=== PATIENT | female | born 1970 | race Caucasian/White ===

== ENCOUNTER 2024-03-22 17:33 | Emergency (ER) | payer OTHER, SELFPAY ==
--- NOTE | ~2024-03-22 | CT_ITS ---
EXAMINATION: CT abdomen pelvis w con DATE: 03/22/2024 20:46 INDICATION: Abdominal pain and diarrhea TECHNIQUE: Computed tomography (CT) of the abdomen and pelvis was performed with 100 mL Omnipaque-350 intravenous contrast. Automated exposure control and iterative reconstruction technique were employe d. The dose-length product was 618.04 mGy-cm. COMPARISON: None FINDINGS: Lung bases are clear. Heart size normal. No pericardial or pleural effusion. Small sliding-type hiata l hernia. Cholecystectomy clips at the gallbladder fossa. Liver, spleen, pancreas, bilateral adrenal glands and kidneys are normal. Fluid is seen scattered throughout the colon consistent with nonspecif ic diarrhea. Small bowel and appendix are normal. Left common iliac vein stent extending from the cau [place]annah inferior vena cava to the proximal most left external iliac vein. Decompressed bladder is unremar kable. The uterus is not identified and has likely been surgically resected. No free intraperitoneal gas or fluid. No pathologically enlarged abdominal or pelvic lymphadenopathy. Moderate lumbar and low er thoracic spondylosis. IMPRESSION: 1. Fluid throughout the colon consistent with nonspecific diarrhea. No other acute intra-abdominal/pe lvic process. 2. Small sliding-type hiatal hernia. 3. Left common iliac vein stent. Reviewed, dictated and finalized at location A. IMPRESSION: 1. Fluid throughout the colon consistent with nonspecific diarrhea. No other ac platinum intra-abdominal/pelvic process. 2. Small sliding-type hiatal hernia. 3. Left common iliac vein stent.
[2024-03-22 17:46] VITALS: BP 123/100; PULSE 105; RESP 14; TEMP 36.7; O2SAT 96
--- NOTE | 2024-03-22 18:39 | ED.ABDPAIN ---
HPI - Abdominal Pain General Chief Complaint: Abdominal Pain <Jamie Ocasio SAND CUTTING MACHINE OPERATOR - Last Filed: 03/22/24 18:43> Stated Complaint: abd pain, N/V <Jamie Ocasio APRN - Last Filed: 03/22/24 18:43> Time Seen by Provider: 03/22/24 18:54 <Jamie Ocasio SAND CUTTING MACHINE OPERATOR - Last Filed: 03/22/24 18:43> Focused HPI: 53-year-old female history of type 2 diabetes, hypertension, Sjogren's, gastroparesis, status post hysterectomy cholecystectomy presents to the emergency room for evaluation of nausea vomiting and diarrhea. Patient states she has been experiencing multiple episodes of nonmelanotic diarrhea. Patient states that she took 1 dose of anti diarrheal with no improvement. Patient states she began experiencing nausea with multiple episodes of nonbloody nonbilious vomiting this afternoon. Associated with upper abdominal discomfort. Denies fevers. GENERAL: Well-appearing, well-nourished, and in no acute distress. HEAD: Normocephalic, atraumatic. CHEST: Clear to auscultation. No respiratory distress. HEART: Regular rate and rhythm. NEURO: Alert and oriented x3. Patient screened in triage and initial orders placed. Additional care and disposition to be based upon diagnostic testing and treatment. <Jamie Ocasio, SAND CUTTING MACHINE OPERATOR - Last Filed: 03/22/24 18:43> History of Present Illness HPI narrative: Patient is a 53 year old female with history of DM, gastroparesis, Sjogren's, HLD, HTN here with diarrhea. Patient notes that 2 weeks ago on she underwent a carpal tunnel and ulnar release at [facility]. She notes she had significant postoperative itching and decided to pull her own stitches out. She contacted her surgeon a couple days later and went into the [facility] and then to the OR with her surgeon for wash out last Wednesday. She was discharged on a week of antibiotics, finishing this past Wednesday. She has no idea which antibiotics she was on and most of her care is through the [facility] or [facility]. She notes that she began having diarrhea about 4 days ago. She notes it is associated with diffuse abdominal cramping worse in the upper and right upper quadrant. She denies any change with eating. She did try to have some scrambled eggs this morning, almost immediately threw them up and has vomited about 7 times today. No blood in vomit or stool. No fever. No known sick contacts, no new food exposures. <Amberly Gunter MD - Last Filed: 03/23/24 12:29> Related Data Allergies/Adverse Reactions: Allergies Allergy/AdvReac Type Severity Reaction Status Date / Time metformin Allergy Other Verified 03/22/24 19:17 <Jamie Ocasio APRN - Last Filed: 03/22/24 18:43> Review of Systems Review of Systems: All systems reviewed & are unremarkable except as noted in HPI and below <Amberly Gunter MD - Last Filed: 03/23/24 12:29> Exam Narrative: GENERAL: Well-appearing, well-nourished, and in no acute distress. HEAD: Normocephalic, atraumatic. EYES: PERRLA and EOMI. ENT: Nares clear. Mucous membranes moist. NECK: Supple. CHEST: Clear to auscultation. No respiratory distress. HEART: Regular rate and rhythm. Normal peripheral pulses. ABDOMEN: Soft, diffuse mild tenderness without rebound or guarding, nondistended. EXTREMITIES: Normal range of motion. No edema. SKIN: Warm, dry, no rash. NEURO: No focal deficits. Alert and oriented x3. PSYCH: Normal mood and affect. <Amberly Gunter MD - Last Filed: 03/23/24 12:29> Course Course Emergency Course: MSE performed by midlevel in triage. Chart review performed by myself at 1914. She is here with nausea, vomiting, diarrhea. Triage workup reviewed. WBC of 11.6, electrolytes within normal limits. Lactic normal. Normal LFTs, normal lipase. COVID, influenza, RSV negative. Patient seen evaluated, nontoxic appearing. She does have some diffuse abdominal tenderness as well as recent antibiotic use. Unable to view prior results from all of her recent care at
--- NOTE | 2024-03-22 18:44 | ECG_ITS ---
Test Date: 2024-03-22 19:03:43 Measurements Intervals [place] Rate: 85 P: 35 MA: 164 QRS: 62 QRSD: 81 T: 48 QT: 378 QTc: 451 Interpretive Statements SINUS RHYTHM NORMAL ECG No previous ECG available for comparison Electronically Signed On 03-23-2024 15:07:43 CDT by Jamie Horn M.D.
[2024-03-22 18:59] LABS: Basophils Percent Auto 0.3 % (0.2-1.2); Eosinophils Absolute Auto 0.1 K/mm3 (0-0.3); Hematocrit 42.7 % (37.0-47.0); Hemoglobin 13.8 g/dL (12.0-15.0); Immature Granulocyte Absolute 0.03 K/mm3 (0.00-0.031); Immature Granulocyte Percent A 0.3 % (0-0.5); Lymphocytes Percent Auto 9.5 % (18.3-44.2); Mean Corpuscular HGB Conc 32.3 g/dl (32-36); Mean Corpuscular Volume 86.8 fl (80-100); Mean Platelet Volume 10.8 fl (7.4-10.4); Monocytes Absolute Auto 0.7 K/mm3 (0.1-0.6); Monocytes Percent Auto 6.1 % (2.6-8.5); Neutrophils Absolute Auto 9.6 K/mm3 (1.3-6.7); Neutrophils Percent Auto 82.8 % (45.5-73.1); Platelet Count Result 392 k/mm3 (150-375); Red Blood Count 4.92 M/mm3 (4.2-5.4); Red Cell Distribution Width 12.7 % (11.5-14.5); White Blood Count 11.6 K/mm3 (4.5-10.0)
[2024-03-22 19:08] LABS: Alanine Aminotransferase 14 U/L (6-35); Albumin Level 4.5 g/dL (3.5-5.1); Alkaline Phosphatase 70 U/L (38-126); Anion Gap 12 mmol/L (4-12); Aspartate Amino Transferase 20 U/L (14-36); Bilirubin,Total 0.6 mg/dL (0.2-1.3); Blood Urea Nitrogen 15 mg/dL (7-17); Calcium 9.5 mg/dL (8.4-10.2); Carbon Dioxide 21 mmol/L (22-30); Chloride 107 mmol/L (98-107); Estimated CRCL calculation 70 ml/min; Estimated Glomerular Filt Rate > 60; Glucose 109 mg/dL (65-110); Lipase 72 U/L (23-300); Potassium 3.6 mmol/L (3.4-5.0); Sodium 140 mmol/L (137-145)
[2024-03-22 19:09] LABS: Lactic Acid Reflex 0.7 mmol/L (0.7-2.0)
[2024-03-22 19:18] VITALS: BP 127/90; PULSE 92; RESP 13; O2SAT 99
[2024-03-22] MEDS: SODIUM CHLORIDE 0.9% IV 1,000 ML 999 ML IV CONT (19:19)
[2024-03-22 19:30] LABS: Appearance Urine Clear (Clear); Bacteria Urine None Seen /hpf; Bilirubin Urine Negative (Negative); Blood Urine Negative (Negative); Color Urine Yellow (Yellow); Glucose Urine UA 3+ mg/dL (Negative); Ketones Urine 1+ mg/dL (Negative); Leukocyte Esterase Ur Negative LEU/UL (Negative); Nitrate Urine Negative (Negative); Non Pathogenic Casts 0-2; Protein Urine Trace mg/dL (Negative); RBC Urine 0-2 /hpf (0-2); Squamous Epithelial Cell Urine None Seen /hpf (Few); Urobilinogen Urine 0.2 mg/dL (<2.0); WBC Urine 0-5 /hpf (0-3)
[2024-03-22 19:31] LABS: Specific Grav Ur 1.045 (1.001-1.035)
[2024-03-22 19:32] LABS: Add Urine Microscopic? YES
[2024-03-22 20:03] LABS: Influenza A QL RT-PCR Negative (Negative); Influenza B QL RT-PCR Negative (Negative); RSV RNA, RT-PCR Negative (Negative); SARS-CoV-2 RNA PCR Negative (Negative)
[2024-03-22] MEDS: ONDANSETRON INJ 4 MG/2 ML VIAL IV PUSH (20:22)
[2024-03-22 21:52] LABS: Toxigenic C. Diff NEGATIVE (NEGATIVE)
== END 2024-03-22 22:15 | disposition home or self-care (01) ==
PROVIDERS: Nurse Practitioner Family; Emergency Provider Student in an Organized Health Care Education/Training Program
DX: R11.2 Nausea with vomiting, unspecified (principal); R19.7 Diarrhea, unspecified; R10.84 Generalized abdominal pain; Z20.822 Contact with and (suspected) exposure to COVID-19; Z98.890 Other specified postprocedural states; E11.43 Type 2 diabetes mellitus with diabetic autonomic (poly)neuropathy; I10 Essential (primary) hypertension; E78.5 Hyperlipidemia, unspecified; K31.84 Gastroparesis; M35.00 Sjogren syndrome, unspecified; K44.9 Diaphragmatic hernia without obstruction or gangrene; Z90.49 Acquired absence of other specified parts of digestive tract; Z90.710 Acquired absence of both cervix and uterus
CPT/HCPCS: 36415; 74177; 80053; 81001; 83605; 83690; 85025; 87493; 87637; 93005; 96361; 96374; 99284; J2405; J7030; Q9967

== ENCOUNTER 2024-08-01 05:21 | Emergency (ER) | payer OTHER, SELFPAY ==
[2024-08-01] VITALS (8 sets, daily range): BP systolic 92–123; BP diastolic 59–87; PULSE 93–136; RESP 16–18; TEMP 36.6; O2SAT 97–99
--- NOTE | ~2024-08-01 | CT_ITS ---
EXAMINATION: CT abdomen pelvis w con DATE: 08/01/2024 08:10 INDICATION: Upper abdominal pain. TECHNIQUE: Computed tomography (CT) of the abdomen and pelvis was performed with 100 mL Omnipaque 350 intravenous contrast. Automated exposure control and iterative reconstruction technique were employe d. The dose-length product was 476.54 mGy-cm. COMPARISON: CT abdomen and pelvis 03/22/2024 FINDINGS: The visualized portions of the lung bases and stable mild atelectasis. There is a 4 mm nodu le in right lower lobe without change, likely benign. No pleural effusion. The heart size is normal. No pericardial effusion. There is a small sliding hiatal hernia. The liver is normal. There are bautista es of cholecystectomy. The spleen, pancreas, adrenal glands, and kidneys are normal. There is a stent in left common iliac vein. The appendix is normal. There is a dilated loop of jejunum without focal transition point. There are no pathologically enlarged lymph nodes. There is a small volume of pelvic ascites. There is severe lower lumbar spondylosis. There is mild thoracic spondylosis. There is mild chronic anterior wedging of multiple vertebral bodies. IMPRESSION: 1. Dilated jejunum, likely adynamic ileus. 2. Small sliding hiatal hernia. 3. Small volume of ascites. Reviewed, dictated and finalized at location B.
[2024-08-01 05:42] LABS: Basophils Percent Auto 0.2 % (0.2-1.2); Eosinophils Absolute Auto 0.1 K/mm3 (0-0.3); Eosinophils Percent Auto 0.6 % (0-4.4); Hemoglobin 16.4 g/dL (12.0-15.0); Immature Granulocyte Absolute 0.06 K/mm3 (0.00-0.031); Immature Granulocyte Percent A 0.3 % (0-0.5); Lymphocytes Absolute Auto 1.09 K/mm3 (0.9-3.2); Lymphocytes Percent Auto 5.8 % (18.3-44.2); Mean Corpuscular HGB Conc 32.8 g/dl (32-36); Mean Corpuscular Hemoglobin 28.1 pg (26-34); Mean Corpuscular Volume 85.8 fl (80-100); Mean Platelet Volume 11.3 fl (7.4-10.4); Monocytes Absolute Auto 1.1 K/mm3 (0.1-0.6); Monocytes Percent Auto 5.6 % (2.6-8.5); Neutrophils Absolute Auto 16.4 K/mm3 (1.3-6.7); Neutrophils Percent Auto 87.5 % (45.5-73.1); Platelet Count Result 436 k/mm3 (150-375); Red Blood Count 5.83 M/mm3 (4.2-5.4); Red Cell Distribution Width 12.7 % (11.5-14.5); White Blood Count 18.7 K/mm3 (4.5-10.0)
[2024-08-01 05:57] LABS: Alanine Aminotransferase 15 U/L (6-35); Albumin Level 4.7 g/dL (3.5-5.1); Alkaline Phosphatase 84 U/L (38-126); Anion Gap 13 mmol/L (4-12); Aspartate Amino Transferase 20 U/L (14-36); Blood Urea Nitrogen 21 mg/dL (7-17); Calcium 10.1 mg/dL (8.4-10.2); Carbon Dioxide 22 mmol/L (22-30); Chloride 101 mmol/L (98-107); Estimated CRCL calculation 63 ml/min; Estimated Glomerular Filt Rate > 60; Glucose 189 mg/dL (65-110); Lipase 83 U/L (23-300); Sodium 136 mmol/L (137-145)
[2024-08-01] MEDS: SODIUM CHLORIDE 0.9% IV 1,000 ML 999 ML IV CONT ×2 (06:13→08:25)
[2024-08-01 07:06] LABS: Add Urine Microscopic? YES; Appearance Urine Turbid (Clear); Bacteria Urine None Seen /hpf; Bilirubin Urine 2+ (Negative); Blood Urine Negative (Negative); Calcium Oxalate Crystals Urine Present /hpf; Color Urine Dark Yellow (Yellow); Glucose Urine UA Trace mg/dL (Negative); Granular Casts Urine Present /lpf; Ketones Urine Trace mg/dL (Negative); Leukocyte Esterase Ur Negative LEU/UL (Negative); Nitrate Urine Negative (Negative); Non Pathogenic Casts >20; Protein Urine 3+ mg/dL (Negative); Specific Grav Ur 1.033 (1.001-1.035); Squamous Epithelial Cell Urine Moderate /hpf (Few)
[2024-08-01] MEDS: MORPHINE SULFATE (*CRX) 4 MG/ML INJ IV PUSH (08:25)
[2024-08-01] MEDS: METOCLOPRAMIDE HCL INJ 10 MG/2 ML VIAL 5 MG IV PUSH (08:25)
--- NOTE | 2024-09-20 13:28 | ED_ITS ---
HPI - Nausea/Vomiting/Diarrhea General Chief complaint: Nausea/Vomiting/Diarrhea Stated complaint: N/V/D Time Seen by Provider: 08/01/24 07:00 Source: patient Mode of arrival: ambulatory Limitations: no limitations History of Present Illness HPI Narrative: 54-year-old here with a complaint of nausea, vomiting and diarrhea for past 1 day. She denies any fever or chills. Complains of diffuse abdominal pain as well MD elicited complaint: nausea, vomiting and diarrhea Onset (ago): day(s) (1) Location of pain: none and diffuse Radiation: diffuse Pain consistency: constant Quality: cramping Associated symptoms: denies other symptoms Related Data Allergies Allergy/AdvReac Type Severity Reaction Status Date / Time metformin Allergy Other Verified 03/22/24 19:17 Review of Systems 2 Review of Systems: All systems reviewed & are unremarkable except as noted in HPI and below Constitutional: Constitutional: Reports no additional constitutional complaints Eyes: Eyes: Reports no additional eye complaints ENT: Reports system reviewed and no additional complaints, except as documented Respiratory: Respiratory: Reports no additional respiratory complaints Gastrointestinal: Gastrointestinal: Reports as per HPI Genitourinary: Genitourinary: Reports no additional female genitourinary complaints Musculoskeletal: Musculoskeletal: Reports no additional musculoskeletal complaints Exam 2 Narrative: GENERAL: Well-appearing, well-nourished, and in no acute distress. HEAD: Normocephalic, atraumatic. EYES: PERRLA and EOMI. ENT: Nares clear. Mucous membranes moist. NECK: Supple. CHEST: Clear to auscultation. No respiratory distress. HEART: Regular rate and rhythm. No murmur heard. Normal peripheral pulses. ABDOMEN: Soft, nontender, nondistended, normal active bowel sounds. EXTREMITIES: Normal range of motion. No edema. SKIN: Warm, dry, no rash. NEURO: No focal deficits. Alert and oriented x3. PSYCH: Normal mood and affect. Course Vital Signs Vital signs: Vital Signs Temperature 36.6 C 08/01/24 05:30 Temperature 36.6 C 08/01/24 05:39 Pulse Rate 93 08/01/24 09:00 Respiratory Rate 18 08/01/24 09:00 Blood Pressure 108/59 L 08/01/24 09:00 Pulse Oximetry 98 08/01/24 09:00 MDM - Nausea/Vomiting/Diarrhea Differential Diagnosis Differential diagnosis: Likely food poisoning, gastroenteritis and dehydration Lab Data Attestation: I reviewed the patient's lab results. 08/01/24 05:35 08/01/24 05:35 Labs: Lab Results 08/01/24 08/01/24 Range/Units 05:35 06:33 WBC 18.7 H (4.5-10.0) K/mm3 RBC 5.83 H (4.2-5.4) M/mm3 Hgb 16.4 H (12.0-15.0) g/dL Hct 50.0 H (37.0-47.0) % MCV 85.8 (80-100) fl MCH 28.1 (26-34) pg MCHC 32.8 (32-36) g/dl RDW 12.7 (11.5-14.5) % Plt Count 436 H (150-375) k/mm3 MPV 11.3 H (7.4-10.4) fl Immature Gran % (Auto) 0.3 (0-0.5) % Neut % (Auto) 87.5 H (45.5-73.1) % Lymph % (Auto) 5.8 L (18.3-44.2) % [place] % (Auto) 5.6 (2.6-8.5) % Eos % (Auto) 0.6 (0-4.4) % Baso % (Auto) 0.2 (0.2-1.2) % Lymph # (Auto) 1.09 (0.9-3.2) K/mm3 [place] # (Auto) 1.1 H (0.1-0.6) K/mm3 Eos # (Auto) 0.1 (0-0.3) K/mm3 Baso # (Auto) 0.0 (0.0-0.1) K/mm3 Abs Immat Gran (auto) 0.06 H (0.00-0.031) K/mm3 Absolute Neuts (auto) 16.4 H (1.3-6.7) K/mm3 Absolute Nucleated RBC 0.000 (0.0-0.012) K/mm3 Nucleated RBC % 0.0 (0.0-0.2) % Sodium 136 L (137-145) mmol/L Potassium 4.0 (3.4-5.0) mmol/L Chloride 101 (98-107) mmol/L Carbon Dioxide 22 (22-30) mmol/L Anion Gap 13 H (4-12) mmol/L BUN 21 H (7-17) mg/dL Creatinine 0.90 (0.7-1.0) mg/dL Estim Creat Clear Calc 63 ml/min Estimated GFR > 60 (59 - ) Glucose 189 H (65-110) mg/dL Calcium 10.1 (8.4-10.2) mg/dL Total Bilirubin 1.0 (0.2-1.3) mg/dL AST 20 (14-36) U/L ALT 15 (6-35) U/L Alkaline Phosphatase 84 (38-126) U/L Total Protein 8.0 (6.3-8.2) g/dL Albumin 4.7 (3.5-5.1) g/dL Lipase 83 (23-300) U/L Urine Color Dark yellow (Yellow) Urine Appearance Turbid H (Clear) Urine pH 5.0 (5.0-9.0) Ur Specific [place] 1.033 (1.001-1.035) Urine Protein 3+ H (Negative) mg/dL Urine Glucose (UA) Trace H (Negative) mg/dL Urine Ketones Trace H (Negative) mg/dL Ur Blood (Man) Negative (Negative) Urine Nitrate Negative (Negative) Urine Bilirubin 2+ H (Negative) Urine Urobilinogen 1.0 (<2.0) mg/dL Leukocyte Esterase Rfl Negative (Negative) MARIA EUGENIA/UL Urine RBC 6-10 H (0-2) /hpf Urine WBC 6-10 H (0-3) /hpf Ur Squamous Epith Cells Moderate (Few) /hpf Calcium Oxalate Crystal Present (None) /hpf Urine Bacteria None seen /hpf Urine Casts >20 Granular Casts Present (None) /lpf Imaging Data Radiologist's impression: ITS Impressions Abdomen/Pelvis CT 08/01/24 08:13 IMPRESSION: 1. Dilated jejunum, likely adynamic ileus. 2. Small sliding hiatal hernia. 3. Small volume of ascites. Discharge Plan Discharge Clinical Impression: Gastroenteritis, Diabetic gastroparesis Patient Disposition: Home, Self-Care Condition: Stable Instructions: Diabetic Gastroparesis (DC), Gastroenteritis (ED) Additional Instructions: continue home medications, follow with your doctor at [facility] Patient Language: Chadian Prescriptions: New ondansetron 4 mg tablet,disintegrating 4 mg PO Q6-8H PRN (Reason: nausea and vomiting) Qty: 14 0RF No Action ondansetron 4 mg tablet,disintegrating 4 mg PO Q6H PRN (Reason: nausea and vomiting) Qty: 10 0RF Follow-up/Referrals: Miky Naidu MD [Physician] - UNKNOWN,DOCTOR [Primary Care Provider] - Time of Disposition: 10:57
== END 2024-08-01 11:06 | disposition home or self-care (01) ==
PROVIDERS: Emergency Medicine; Emergency Provider Family Medicine
DX: K52.9 Noninfective gastroenteritis and colitis, unspecified (principal); E11.43 Type 2 diabetes mellitus with diabetic autonomic (poly)neuropathy; K31.84 Gastroparesis; R82.998 Other abnormal findings in urine; K44.9 Diaphragmatic hernia without obstruction or gangrene; R18.8 Other ascites
CPT/HCPCS: 36415; 74177; 80053; 81001; 83690; 85025; 87086; 96361; 96374; 96375; 99284; J2270; J2765; J7030; Q9967